=== PATIENT | female | born 1970 | race Caucasian/White ===

== ENCOUNTER 2017-03-12 06:02 | Observation (INO) ==
--- NOTE | 2017-03-12 06:31 | Emergency Department Note ---
Arrival - Arrival Chief Complaint: Altered Mental Status Stated Complaint: possible stroke ED Nursing Triage Note: pt presented to triage ambulatory with c/o intermittent confusion x 1 week. family reports pt was nonverbal on 03/11/17. A+O x 3 now. speech clear in triage and face symmetrical. 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 HX of MS reported. pt states symptoms were worse after family dispute. Mode of Arrival: Ambulatory Limitations: No Limitations Source: Patient Time Seen by Provider: 03/12/17 06:26 - History of Present Illness HPI Narrative: This 47-year-old white female both by her personal history and family observations this had unusual behavior the past week. The patient has long- standing psychiatric problems with anxiety disorder for which she sees a psychiatrist every 3 months as well as long-standing multiple sclerosis for which there is been an overlap in symptoms which is been difficult to differentiate for the past several years. The patient this week at time has been confused, written nonsensical notes, and states she can read something but it does not make sense to her. She is also had periods where she feels she has not been able to speak but at no time has she had any slurred speech. She likewise denies any visual changes; however, has had problems with incontinence , ataxia, and gripping objects. Unfortunately, she has these problems when her MS is in flare but usually not with associated confusion. Currently she is alert and oriented 3 and in no obvious medical distress. Onset (ago): week(s) (Patient presents with one-week of symptoms) Date of Last Menstrual Period: hyst Allergies/Adverse Reactions: Allergies Allergy/AdvReac Type Severity Reaction Status Date / Time aspirin Allergy Mild Gastrointestinal Verified 11/17/16 11:28 Upset Home Medications: Home Medications Medication Instructions Recorded Confirmed Type Estrogens, Conjugated [Premarin] 1.25 mg PO DAILY 05/15/16 05/15/16 History Glatiramer Acetate [Copaxone] 40 mg SQ Q72H 05/15/16 05/15/16 History Modafinil [Provigil] 50 mg PO DAILY 05/15/16 05/15/16 History Sertraline [Zoloft] 150 mg PO DAILY 05/15/16 05/15/16 History Zolpidem [Ambien] 5 mg PO BEDTIME 05/15/16 05/15/16 History buPROPion [Wellbutrin] 300 mg PO DAILY 05/15/16 05/15/16 History tiZANidine [Zanaflex] 2 mg PO BID 05/15/16 05/15/16 History Review of System - Review of System 12 point system: reviewed and no additional remarkable complaints except as stated - Review of System Constitutional: Present: as per HPI Neurological: Present: as per HPI Psychiatric: Present: as per HPI Medical,Surgical,& Family Hx - Medical History Psychological: History of: Depression Neurology: History of: Migraine, Multiple Sclerosis No history of: Seizures Genitourinary: History of: Kidney Stones (litho), Recurring Urinary Tract Infections Gastrointestinal: History of: GERD, GI Problems (history of ulcers) Musculoskeletal: History of: Musculoskeletal Problems (MS) Other: No history of: Anesthesia Reactions - Surgical History Thoracic Surgeries: Surgical HX of;: Lithotripsy (05/28) Patient denies;: Organ Transplant Reproductive Surgeries: Surgical HX of;: Hysterectomy - Social History Smoking Status: Never smoker Frequency of Alcohol Use: None Type of Drug Use: None Exam Physical Examination: GENERAL: Well developed, well nourished white female in no acute distress. HEENT: Normocephalic. No trauma. Moist mucous membranes. EOMI. PERRLA. ENT NML NECK: Supple. No adenopathy. CARDIAC: Regular. No murmurs. Heart rate 99 CHEST: Clear to auscultation. No respiratory distress. O2 sat 98% ABDOMEN: Soft. Nontender. Active bowel sounds. EXTREMITIES: No trauma. Normal ROM. No pedal edema. SKIN: No diaphoresis. No rash. NEURO: Alert. Oriented 3. Motor, sensory, vibratory intact at this time. No focal deficits. Vital Signs: Vital Signs Temperature 98 F 03/12/17 06:38 Pulse Rate 73 03/12/17 07:00 Respiratory Rate 18 03/12/17 07:00 Blood Pressure 108/77 03/12/17 07:00 O2 Sat by Pulse Oximetry 98 03/12/17 07:00 Course - Reevaluation(s) Reevaluation #1: Discussed with patient and family the need for admission to see which situation is causing her current symptoms. MS or site or both. - Consultations Consultation #1: Discussed with hospitalist service who will admit for further evaluation treatment. Results - Labs CBC & BMP: 03/12/17 06:21 03/12/17 06:21 Labs: I have reviewed the laboratory and noted its normalcy. - Impressions EKG: Sinus rhythm at 75 with normal LA interval and QRS duration. Nonspecific ST changes. No acute injury pattern noted. - Diagnostic Findings Procedure: Chest x-ray: image reviewed by me, report reviewed by me (Normal chest), CT: image reviewed by me, report reviewed by me (Normal head CT) Disposition Clinical Impression: Multiple sclerosis, Anxiety disorder/depression Case discussed with: patient, patient's family Disposition: Still a Patient Condition: Stable Time of Disposition: 07:30
[2017-03-12 06:37] LABS: Basophils # 0.1 10*3/uL (0.0-0.2); Basophils % 0.9 % (0.0-0.8); Eosinophils # 0.1 10*3/uL (0.0-0.87); Eosinophils % 1.5 % (0.00-10.9); Hematocrit 39.7 VOL% (35.7-47.0); Hemoglobin 14.1 GM/DL (12.0-16.0); Immature Granulocytes % 0.3 %; Immature Granulocytes Absolute 0.02 #; Lymphocytes # 2.3 10*3/uL (1.4-4.0); Lymphocytes % 29.4 % (21.3-54.2); Mean Corpuscular HGB Conc 35.5 GM/DL (32-36); Mean Corpuscular Hemoglobin 31 PG (27-34); Mean Corpuscular Volume 86.7 FL (87-102); Mean Platelet Volume 10.7 FL (9.6-12.0); Monocytes # 0.5 10*3/uL (0.11-0.8); Monocytes % 6.5 % (1.7-12.7); Neutrophils # 4.8 10*3/uL (1.4-7.4); Neutrophils % 61.4 % (38.7-73.9); Platelet Count 230 T/CUMM (130-400); Red Blood Count 4.58 MC/CUMM (3.8-5.5); Red Cell Distribution Width 11.9 % (9.3-17.3); White Blood Count 7.9 T/CUMM (4-12)
--- NOTE | 2017-03-12 06:46 | CT Report ---
CT head/brain wo con Indication: Mental status changes Comparison: None Technique: Multiple axial tomographic images of the brain were obtained without the use of intravenous contrast. Findings: Midline structures are nondisplaced. There is no convincing evidence of acute intracranial hemorrhage . No convincing evidence of hydrocephalus. The visualized paranasal sinuses and bilateral mastoid air cells are essentially clear. IMPRESSION: No acute intracranial abnormality demonstrated. The CT exam was performed using one or more of the following dose reduction techniques: Automated exposure control, adjustment of the mA and/or kV according to patient size, or use of iterative reconstruction technique. PROCEDURE INTERPRETED AT [facility] DEPARTMENT OF RADIOLOGY Final Report Signed by: Dr Washington Juarez
[2017-03-12 06:50] LABS: PT Patient Result 10.5 SECS
--- NOTE | 2017-03-12 06:53 | EKG Report ---
Stationary ECG Study 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
[2017-03-12 07:08] LABS: Bilirubin,Total 0.4 MG/DL (0.2-1.0); Calcium 9.8 MG/DL (8.5-10.1); Magnesium 2.2 MG/DL (1.8-2.4); Osmolality,Calculated 271.8 MOS/KG (273-304); Potassium 4.1 MMOL/L (3.5-5.1); Thyroid Stimulating Hormone 2.58 uIU/ml (0.358-3.74); Total Protein 7.7 G/DL (6.4-8.3)
[2017-03-12 07:09] LABS: Apearance,Urine CLEAR (Clear); Bacteria,Urine Occasional /HPF (Few); Bilirubin,Urine Negative (Negative); Blood, Urine Negative (Negative); Glucose,Urine (UA) Negative (Negative); Ketones,Urine Negative (Negative); Mucus,Urine Occasional /LPF (Occasional); Nitrite,Urine Negative (Negative); Protein,Urine Negative; RBC,Urine <1 /HPF (0-4); Squamous Epithelial Cell,Urine Occasional /HPF (0-10); Urine Color Yellow (Yellow); Urine Urobilinogen < 2.0 EU/DL (0.2-1.0); WBC,Urine 1 /HPF (0-6)
[2017-03-12 07:10] LABS: Barbiturates Screen,Urine Negative (Negative); Benzodiazepines Screen,Urine Positive (Negative); Cannabinoid Screen,Urine Negative (Negative); Opiate Screen,Urine Negative (Negative); Phencyclidine Screen,Urine Negative (Negative)
--- NOTE | 2017-03-12 07:58 | XRay Report ---
XR chest 2V Indication: Altered mental status Comparison: None Technique: Frontal and lateral views of the chest. Findings: Heart size within normal limits. No focal consolidation, pleural effusion, or pneumothorax. Visualized osseous and surrounding soft tissue structures demonstrate no acute abnormality. IMPRESSION: No acute cardiopulmonary process demonstrated. PROCEDURE INTERPRETED AT [facility] DEPARTMENT OF RADIOLOGY Final Report Signed by: Dr Washington Juarez
--- NOTE | 2017-03-12 08:38 | Hospitalist History & Physical ---
Assessment and Plan - Time spent with patient Time spent with patient: Greater than 30 minutes (1) Altered mental status, unspecified Status: Acute Assessment and plan: All symptoms have resolved at the time of my exam. Patient notes intermittent confusion throughout the week. His CT at the time of admission revealed no acute intracranial abnormalities. EKG has normal sinus rhythm. Chest x-ray is negative. All lab work to date is within normal limits. Patient does have a UDS positive for benzodiazepines however she takes Xanax regularly. Neurology has been consulted for further recommendations. Current Visit: Yes (2) Anxiety Status: Acute Assessment and plan: Patient has history of anxiety associated with her multiple sclerosis. She is followed by psychiatrist. Current Visit: Yes (3) Depression Status: Acute Assessment and plan: Patient has history of depression related to multiple sclerosis. Current Visit: Yes (4) Multiple sclerosis Status: Acute Assessment and plan: Patient is followed by Dr. Kimbrough. He has been consulted for further evaluation and recommendations. Current Visit: Yes History of Present Illness Chief complaint: Altered mental status History of present illness: Ms. Hudson is a 47 year old white female with a past medical history significant for multiple sclerosis, anxiety and depression who presents to the ED today with complaints of intermittent confusion 1 week. The patient reports that, after a dispute with her daughter approximately 1 week ago, she was "stunned" and in a state of "shock". Patient also reports having failed and chipped her tooth which she attributes to the multiple sclerosis as she falls frequently. She tells me that she has been private all week and, when questioned by her she responded "I am broken" and could not express herself. She says at the time she felt her heart pounding and could feel the palpitations in her neck and forehead. She also states that she did not understand that time was passing. Patient notes that she again had an argument with her on last night and the symptoms returned. She states that she has been frightened all week with 2 episodes of bladder incontinence one in which she urinated while in a blank staring at the wall. She notes that she is scared to be alone and has been watched by family members all week long. She does tell me that she was seen by a psychologist twice this week who told her that she was fine and she could go home. At the time of my exam, the patient was resting in bed comfortably awake, alert and oriented 3. She appeared in no acute medical distress. She can answer all questions appropriately and coherently recounting her story chronologically. Her sister is at her bedside and corroborates her story. Her sister also notes that the patient has been talking out of her head but denies any slurred speech. Patient has strength equal bilaterally in upper and lower extremities. There is no evidence of facial asymmetry or slurred speech. She denies current headache, chest pain, palpitations, syncopal events, nausea or vomiting, extremity pain, edema. After discussion with Dr. Henry, ER physician , and Dr. Calderon, admitting physician, it is been decided that the patient will be admitted for observation and further evaluation and treatment. Patient is a full code. Home meds have been reviewed and reconciled. Home Medications Medication Instructions Recorded Confirmed Type Glatiramer Acetate [Copaxone] 40 mg SQ Q72H 05/15/16 05/15/16 History Zolpidem [Ambien] 5 mg PO BEDTIME 05/15/16 03/12/17 History ALPRAZolam [Xanax] 2 mg PO BID 03/12/17 03/12/17 History Cranberry Conc/C/Bacill Coag 1 each PO DAILY 03/12/17 03/12/17 History [Cranberry Tablet] Cyanocobalamin (Vitamin B-12) 1,000 mcg PO DAILY 03/12/17 03/12/17 History [Vitamin B-12] Estrogens(Conj) Vag Cream 0.5 gm VAG Q7D 03/12/17 03/12/17 History [Premarin Vag Cream] Estrogens, Conjugated [Premarin] 1.25 mg PO QAM 03/12/17 03/12/17 History Sertraline [Zoloft] 100 mg PO QAM 03/12/17 03/12/17 History Tamsulosin [Flomax] 0.4 mg PO DAILY 03/12/17 03/12/17 History buPROPion XL [Wellbutrin Xl] 300 mg PO QAM 03/12/17 03/12/17 History Allergies Allergy/AdvReac Type Severity Reaction Status Date / Time aspirin Allergy Mild Gastrointestinal Verified 11/17/16 11:28 Upset Medical,Surgical,& Family Hx - Medical History Psychological: History of: Depression Neurology: History of: Migraine, Multiple Sclerosis No history of: Seizures Genitourinary: History of: Kidney Stones (litho), Recurring Urinary Tract Infections Gastrointestinal: History of: GERD, GI Problems (history of ulcers) Musculoskeletal: History of: Musculoskeletal Problems (MS) Other: No history of: Anesthesia Reactions - Surgical History Thoracic Surgeries: Surgical HX of;: Lithotripsy (05/28) Patient denies;: Organ Transplant Reproductive Surgeries: Surgical HX of;: Hysterectomy - Family History Family History: Reports;: Family Psychiatric Problems - Social History Smoking Status: Never smoker Frequency of Alcohol Use: None Type of Drug Use: None Marital Status: Lives With:: Spouse Functional capacity: independent ambulation 12 point system: reviewed and no additional remarkable complaints except as stated Exam - Constitutional Vitals: Period Temp Pulse Resp BP Sys/Devi Pulse Ox Last 24 Hr 98 F-98.0 F 72-99 14-22 106-122/77-92 97-99 Exam: General appearance: normal weight, no acute distress - Head Head exam: Present: normocephalic, atraumatic - Eye Eye exam: Present: EOMI. Absent: conjunctival injection, nystagmus Pupils: Present: MADELYN, normal accommodation - ENT ENT exam: Present: normal exam, normal external ear exam - Neck Neck exam: Present: normal inspection. Absent: lymphadenopathy, tenderness, thyromegaly - Respiratory Respiratory exam: Present: clear to auscultation bilaterally. Absent: rales, rhonchi, wheezes - Cardiovascular Cardiovascular exam: Present: regular rate and rhythm. Absent: carotid bruit, gallop, rubs - GI/Abdominal GI/Abdominal exam: Present: normal bowel sounds. Absent: ascites, distended, mass - Extremities Exam Extremities exam: Present: normal inspection, normal capillary refill. Absent: edema - Back Exam Back exam: Absent: CVA tenderness (L), CVA tenderness (R) - Neurological Exam Neurological exam: Present: alert, oriented X3, CN II-XII intact, reflexes normal - Psychiatric Psychiatric exam: Present: normal affect, normal mood - Skin Skin exam: Present: normal color, warm, dry Results - Labs CBC & BMP: 03/12/17 06:21 03/12/17 06:21
[2017-03-12] MEDS: PANTOPRAZOLE 40 MG TABLET PO SCH (12:22)
--- NOTE | 2017-03-12 15:46 | Neurology Consult Note ---
History of Present Illness History of present illness: Ms. Hudson is a 47 year old white female with a past medical history significant for remitting and relapsing type multiple sclerosis, anxiety and depression who presents to the ED today with complaints of intermittent confusion 1 week. The patient reports that, after a dispute with her daughter approximately 1 week ago she has developed these anxiety symptoms. Patient also reports having fall and chipped her tooth which she attributes to the multiple sclerosis as she falls frequently. She says at the time she felt her heart pounding and could feel the palpitations in her neck and forehead. Patient notes that she again had an argument with her on last night and the symptoms returned. She states that she has been frightened all week with 2 episodes of bladder incontinence one in which she urinated while in a blank staring at the wall. She notes that she is scared to be alone and has been watched by family members all week long. CT of the head reveals no acute abnormalities. UA is negative. Home Medications Medication Instructions Recorded Confirmed Type Glatiramer Acetate [Copaxone] 40 mg SUBCUT MOWEFR 05/15/16 03/12/17 History Zolpidem [Ambien] 5 mg PO BEDTIME 05/15/16 03/12/17 History ALPRAZolam [Xanax] 2 mg PO BID 03/12/17 03/12/17 History Cranberry Conc/C/Bacill Coag 1 each PO DAILY 03/12/17 03/12/17 History [Cranberry Tablet] Cyanocobalamin (Vitamin B-12) 1,000 mcg PO DAILY 03/12/17 03/12/17 History [Vitamin B-12] Estrogens(Conj) Vag Cream 0.5 gm VAG Q7D 03/12/17 03/12/17 History [Premarin Vag Cream] Estrogens, Conjugated [Premarin] 1.25 mg PO QAM 03/12/17 03/12/17 History Sertraline [Zoloft] 100 mg PO QAM 03/12/17 03/12/17 History Tamsulosin [Flomax] 0.4 mg PO DAILY 03/12/17 03/12/17 History buPROPion XL [Wellbutrin Xl] 300 mg PO QAM 03/12/17 03/12/17 History Allergies Allergy/AdvReac Type Severity Reaction Status Date / Time aspirin Allergy Mild Gastrointestinal Verified 11/17/16 11:28 Upset 12 point system: reviewed and no additional remarkable complaints except as stated Medical,Surgical,& Family Hx - Medical History Psychological: History of: Depression Neurology: History of: Migraine, Multiple Sclerosis No history of: Seizures Genitourinary: History of: Kidney Stones (litho), Recurring Urinary Tract Infections Gastrointestinal: History of: GERD, GI Problems (history of ulcers) Musculoskeletal: History of: Musculoskeletal Problems (MS) Other: No history of: Anesthesia Reactions - Surgical History Thoracic Surgeries: Surgical HX of;: Lithotripsy (05/28) Patient denies;: Organ Transplant Reproductive Surgeries: Surgical HX of;: Hysterectomy - Family History Family History: Reports;: Family Psychiatric Problems - Social History Smoking Status: Never smoker Frequency of Alcohol Use: None Type of Drug Use: None Exam - Constitutional Vitals: Period Temp Pulse Resp BP Sys/Devi Pulse Ox Last 24 Hr 97.2 F-98.0 F 70-99 14-22 106-128/67-92 97-100 Exam: GENERAL: Patient is in no acute distress. NECK: Neck is supple. There is no JVD. No carotid bruits present. No thyroid masses. CVS: First and second heart sounds are normal. There is no S3 present. Regular rate and rhythm. RESPIRATORY: Lungs are clear to auscultation without any rales or rhonchi. ABDOMEN: Soft and non-tender. Bowel sounds are present. There is no hepatosplenomegaly. EXT: There is no palpable edema. Peripheral pulses are present. Skin: No rashes Central Nervous system: General: Alert, awake and Oriented x 3 Speech: Fluent Comprehension: Intact and normal Facial expressions: Normal Cranial Nerves: CN1/Olfactory: Normal CN II/ Optic: Normal, Visual Baldwin unreliable CN III, and : MADELYN & EOMI CN V: Normal & intact CN VII: face is symmetric CNVIII: Normal CN XI/X/XI/XII: Intact and Normal Motor: Bulk and Tone is normal. Strength in the right 5/5 Strength in the left 5/5 Sensory: Grossly intact for all the modalities of PP, LT and temp sense Reflexes: 2+ and symmetrical Cerebellar function: Normal finger to nose and heel to arroyo testing. Toes: Equivocal Gait: Normal heel to heel and toe to toe and tandem walk. Results - Labs CBC & BMP: 03/12/17 06:21 03/12/17 06:21 Assessment and Plan (1) Anxiety and depression Status: Acute Assessment and plan: Change Xanax to 3 times daily Add Depakote ER to 250 mg p.o. daily Current Visit: Yes (2) Multiple sclerosis Status: Acute Assessment and plan: This is quite stable. I do not see any evidence of MS flareup or exacerbation No indication of use of steroids Thank you for the consult Current Visit: Yes
[2017-03-12] MEDS ORDERED: ALPRAZolam 0.5 MG TABLET PO ONE (16:06)
[2017-03-12] MEDS: ACETAMINOPHEN 325 MG TABLET PO PRN (16:51)
[2017-03-12] MEDS: DEXTROSE 5% NACL 0.45% 1,000 ML IV SCH (16:52)
[2017-03-12] MEDS: ALPRAZolam 0.5 MG TABLET PO SCH (20:35)
[2017-03-12] MEDS: ZALEPLON 5 MG CAPSULE PO PRN (20:36)
[2017-03-12] MEDS ORDERED: ALPRAZolam 0.5 MG TABLET PO SCH (21:00)
[2017-03-13] MEDS: ZALEPLON 5 MG CAPSULE PO PRN (00:45)
[2017-03-13] MEDS: ACETAMINOPHEN 325 MG TABLET PO PRN (00:45)
[2017-03-13 05:06] LABS: Basophils % 0.6 % (0.0-0.8); Eosinophils # 0.1 10*3/uL (0.0-0.87); Eosinophils % 1.8 % (0.00-10.9); Hematocrit 36.3 VOL% (35.7-47.0); Hemoglobin 12.6 GM/DL (12.0-16.0); Immature Granulocytes % 0.4 %; Immature Granulocytes Absolute 0.03 #; Lymphocytes # 2.4 10*3/uL (1.4-4.0); Lymphocytes % 33.8 % (21.3-54.2); Mean Corpuscular HGB Conc 34.7 GM/DL (32-36); Mean Corpuscular Hemoglobin 31 PG (27-34); Mean Corpuscular Volume 87.9 FL (87-102); Monocytes # 0.6 10*3/uL (0.11-0.8); Monocytes % 8.7 % (1.7-12.7); Neutrophils # 3.9 10*3/uL (1.4-7.4); Neutrophils % 54.7 % (38.7-73.9); Platelet Count 224 T/CUMM (130-400); Red Blood Count 4.13 MC/CUMM (3.8-5.5); Red Cell Distribution Width 11.9 % (9.3-17.3); White Blood Count 7.1 T/CUMM (4-12)
[2017-03-13 05:19] LABS: Calcium 9.1 MG/DL (8.5-10.1); Osmolality,Calculated 274.7 MOS/KG (273-304); Potassium 4.3 MMOL/L (3.5-5.1)
[2017-03-13] MEDS ORDERED: ESTROGENS (CONJ) 0.625 MG TABLET PO SCH (09:00)
[2017-03-13] MEDS ORDERED: [UNRECOGNIZED DRUG - OTHER] PO SCH (09:00)
[2017-03-13] MEDS ORDERED: TAMSULOSIN 0.4 MG CAPSULE PO SCH (09:00)
[2017-03-13] MEDS ORDERED: ESTROGENS (CONJ) VAG CREAM 30 GM TUBE VAG SCH (09:00)
[2017-03-13] MEDS ORDERED: SERTRALINE 100 MG TABLET PO SCH (09:00)
[2017-03-13] MEDS ORDERED: DIVALPROEX ER 250 MG TABLET PO SCH (09:00)
[2017-03-13] MEDS ORDERED: CYANOCOBALAMIN 500 MCG TABLET PO SCH (09:00)
[2017-03-13] MEDS: ALPRAZolam 0.5 MG TABLET PO SCH (09:44)
[2017-03-13] MEDS: PANTOPRAZOLE 40 MG TABLET PO SCH (09:45)
--- NOTE | 2017-03-13 10:51 | Discharge Summary ---
Hospital Course - Hospital Course Hospital Course: 47-year-old white female with history of multiple sclerosis, anxiety, and depression presenting to the ED on 03/12/2017 with complaints of intermittent confusion, incontinence, and generalized muscle weakness that has progressed over the last week. Patient has a neurologist in [facility], general practitioner Dr. Holman, psychiatrist, psychologist, urologist, and MS specialist at [facility]. Over the last week patient has had increased anxiety and exacerbation of her MS symptoms due to some problems at home with her and her daughter. Dr. Kimbrough was consulted and he increased her Xanax and added Depakote to her home regimen. He felt it was more of an MS exacerbation due to her social problems than a true MS emergency warranting high-dose steroids. Patient is feeling better this morning she has reached maximal hospital benefit. Had a long discussion with the patient about her social issues. Recommend her following up with her neurologist at [facility] within the next 2 weeks, her psychiatrist in the next few weeks for her anxiety medications, and her family physician. We will give her a walker for home, and home health nursing and physical therapy to increase her independence. Patient is agreeable to all this. Complete discharge instructions have been given to the patient. Care coordination, chart review, and completed discharge paperwork took approximately 45 minutes. - Time spent with patient Time with patient DS: Greater than 30 minutes Diagnosis - Discharge Diagnosis (1) Altered mental status, unspecified Status: Resolved (2) Multiple sclerosis Status: Chronic (3) Anxiety and depression Status: Chronic Discharge Plan - Discharge Data Disposition: Home Health Service Condition at Discharge: Stable Discharge Diet: advance to your usual diet Activity: as per physical therapy Hygiene: may shower Driving: no restrictions - Discharge Medications New Divalproex ER [Depakote ER] 250 mg PO DAILY #20 tablet ALPRAZolam [Xanax] 2 mg PO TID #50 tablet Continue Zolpidem [Ambien] 5 mg PO BEDTIME Glatiramer Acetate [Copaxone] 40 mg SUBCUT MOWEFR Estrogens, Conjugated [Premarin] 1.25 mg PO QAM Cyanocobalamin (Vitamin B-12) [Vitamin B-12] 1,000 mcg PO DAILY buPROPion XL [Wellbutrin Xl] 300 mg PO QAM Tamsulosin [Flomax] 0.4 mg PO DAILY Cranberry Conc/C/Bacill Coag [Cranberry Tablet] 1 each PO DAILY Estrogens(Conj) Vag Cream [Premarin Vag Cream] 0.5 gm VAG Q7D Sertraline [Zoloft] 100 mg PO QAM Discontinued ALPRAZolam [Xanax] 2 mg PO BID - Follow Up or Referral Follow Up: psychiatrist,family [Other] - 1 Week uab,neurologist [Other] - 1 Week pcp,family [Other] - 2 Weeks - Forms/Instructions Exam - Constitutional Vitals: Period Temp Pulse Resp BP Sys/Devi Pulse Ox Last 24 Hr 96.5 F-98.0 F 70-92 16-20 87-128/51-76 94-99 Exam: 47-year-old white female, no acute distress, alert and oriented Chest clear CV regular rate and rhythm Abdomen soft and nontender Extremities no edema Discharge Results Labs on day of discharge: Labs from last 24 hours 03/13/17 03/13/17 04:27 04:27 WBC 7.1 RBC 4.13 Hgb 12.6 Hct 36.3 MCV 87.9 MCH 31 MCHC 34.7 RDW 11.9 Plt Count 224 MPV 11.0 Neut % (Auto) 54.7 Lymph % (Auto) 33.8 [place] % (Auto) 8.7 Eos % (Auto) 1.8 Baso % (Auto) 0.6 Neut # (Auto) 3.9 Lymph # (Auto) 2.4 [place] # (Auto) 0.6 Eos # (Auto) 0.1 Baso # (Auto) 0.0 Immature Gran % 0.4 Nucleated RBC % 0.0 Immature Gran # 0.03 Nucleated RBCs # 0.00 Immature Plt Fraction 0.0 Sodium 138 Potassium 4.3 Chloride 102 Carbon Dioxide 30 Anion Gap 10.3 BUN 12 Creatinine 0.90 GFR Calculation 69 BUN/Creatinine Ratio 13.00 Glucose 104 Calculated Osmolality 274.7 Calcium 9.1 DS: Provider Date of admission: 03/12/17 08:30 Primary care physician: Niecy Holman Attending physician on admission: Charity Calderon MD Consults: 03/12/17 09:07 Consult to Physician [CONS] Routine Comment: altered mental status Consulting Provider: Daryn Kimbrough Consulting Provider Notified: Yes When should Consulting Provider be notified: Now Consult to Specialist Group: Neurology When should Consulting Provider be notified: Now Person Notified: ZANDER Date Notified: 03/12/17 Time Notified: 14:26 03/12/17 10:58 Consult to Dietitian [CONS] Routine Reason for Dietitian: Diet Instruction 03/13/17 10:31 PT [Consult to Physical Therapy] [CONS] Routine Reason for Physical Therapy: Other Consult Comment: NEEDS STANDARD WALKER FOR HOME USE Discharging clinician: ARPIT Barrios Expected date of discharge: 03/13/17
[2017-03-13 12:43] VITALS: BP 113/74
[2017-03-13] MEDS: DEXTROSE 5% NACL 0.45% 1,000 ML IV SCH (13:14)
== END 2017-03-13 14:00 | disposition home health service (06) ==
LOC: N.ED 06:02 → N.EDINP 06:02 → N.4E 09:15
PROVIDERS: ADMIT Hospitalist; ATTEND Hospitalist